=== PATIENT | female | born 1935 | race Caucasian/White ===

== ENCOUNTER 2019-11-07 13:04 | Emergency (ER) | payer MEDICARE ==
[~2019-11-07] VITALS: Ht 162.6 cm; Wt 61.7 kg
[~2019-11-07 13:04] MED LIST: NO HOME MEDS; TRAMADOL HCL50 MG PO; Z.0.CYMBALTA60 MG PO; Z.0.LORAZEPAM1 MG PO; Z.0.SIMVASTATIN40 MG PO; Z.0.TEMAZEPAM15 MG PO
--- OUTSIDE RECORDS SUMMARY | 2019-11-07 13:08 | XMS REPORT ---
Author Author [facility] Address Unknown Phone Unavailable Care Team Providers Care Pin Pusher Name Role Phone Unavailable Unavailable Payers Payer Name Policy Type Policy Number Effective Date Expiration Date Problems This patient has no known problems. Allergies, Adverse Reactions, Alerts Allergy Name Allergy Type Status Severity Reaction(s) Onset Date Inactive Date Treating Clinician Comments Penicillins DA Active U 2019-10-06 00:00:00 Sulfa (Sulfonamide Antibiotics) DA Active U 2019-10-06 00:00:00 adhesive tape DA Active U 2019-10-06 00:00:00 Penicillins DA Active U 2012-10-02 00:00:00 Sulfa (Sulfonamide Antibiotics) DA Active U 2012-10-02 00:00:00 adhesive tape DA Active U 2012-10-02 00:00:00 Medications This patient has no known medications. Results Test Description Test Time Test Comments Text Results Atomic Results Result Comments - CT C-SPINE W/O CONTRAST 2019-10-06 14:10:00 Name: [facility] : 1935 Age/S: 84 / F [address] [facility] Unit #: [id number] Loc: [place] [address] Phys: Dwayne Harry MD Acct: [id number] Dis Date: Status: REG ER PHONE #: [phone] Exam Date: 10/06/2019 1326 FAX #: [phone] Reason: trauma, plavix EXAMS: CPT CODE: [id number] CT C-SPINE W/O CONTRAST 52975 HISTORY: Pain after trauma and on Plavix. COMPARISON: CT scan from October 02, 2012. Location: [facility]. CT cervical spine without contrast: Automated exposure control. No acute fracture of the cervical spine. No prevertebral soft tissue swelling is noted. Multilevel moderate to severe canal and foraminal stenosis due to posterior marginal disc osteophyte complex. Facet hypertrophy contributes to the foraminal stenosis. Correlate with rad icular symptoms. Thyroid glands are unremarkable. Superior mediastinum is unremarkable. Lung apices are clear. Anatomic alignment. Vertebral body heights are maintained. Disc spaces are preserved. IMPRESSION: No acute fracture. Anatomic alignment. DJD. at 1410 Reported and signed by: Oseas Merrill M.D. CC: Dwayne Harry MD Technologist:Aki Chung RT(R) CTDI: DLP: Trnscb Date/Time: 10/06/2019 (1409) [email or web address] Orig Print D/T: S: 10/06/2019 (2775) PAGE 1 Signed Report - CT HEAD/BRAIN W/O CONT 2019-10-06 13:49:00 Name: LUCIL[facility] : 1935 Age/S: 84 / F [address] [facility] Unit #: [id number] Loc: [place] [address] Phys: Dwayne Harry MD Acct: [id number] Dis Date: Status: REG ER PHONE #: [phone] Exam Date: 10/06/2019 1326 FAX #: [phone] Reason: trauma, plavix EXAMS: CPT CODE: [id number] CT HEAD/BRAIN W/O CONT 40249 HISTORY: Fall and pain. COMPARISON: October 02, 2012. CT brain without contrast: Automated exposure control Location: [facility]. No acute intracranial bleeds or extra-axial collections are noted. No acute territorial vascular infarction is noted. The sulci, gyri, ventricles and subarachnoid spaces and the basilar cisterns are normal for patient's age. No herniation or hydrocephalus or midline shift is noted. Mild periventricular ischemic gliosis is noted. Age-appropriate atrophy is noted as well. Portions of the visualized paranasal sinuses are normal. No obvious bony calvarial defect is noted. IMPRESSION: No acute intracranial bleeds or extra-axial collections. No acute territorial vascular infarction. No herniation or hydrocephalus or midline shift. 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 at 1347 Reported and signed by: Oseas Merrill M.D. CC: Dwayne Harry MD Technologist:Aki THORPE(R) CTDI: DLP: Trnscb Date/Time: 10/06/2019 (6987) [email or web address] Orig Print D/T: S: 10/06/2019 (1725) PAGE 1 Signed Report
--- NOTE | 2019-11-07 14:18 | Diagnostic Imaging Report ---
Examination: CT head without contrast Clinical Indication: Fall with head injury. Technique: Transaxial noncontrast images from the skull base through the vertex were obtained. Sagittal and coronal reformatted images were done. Dose modulation, iterative reconstruction, and/or weight based adjustment of the mA/kV was utilized to reduce the radiation dose to as low as reasonably achievable. Comparison: Head CT performed June 12, 2013. Findings: Scalp: No abnormalities. Bones: Intact. No fractures. No blastic or lytic lesions. Brain sulci: Appropriate for patient's age. 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 Extra-axial space: No abnormalities. Parenchyma: Again demonstrated are confluent areas of low-attenuation within subcortical and periventricular white matter, nonspecific, but could represent microvascular ischemic disease. Chronic lacunar infarcts are again identified in the bilateral putamina and anterior limb of the right internal capsule. No masses, hemorrhage, or acute or chronic cortical based vascular insults. Suprasellar region: No abnormalities. Craniocervical junction: The foramen magnum is patent. No Chiari one malformation. Incidental findings: Opacified partially visualized right maxillary sinus, new from prior examination. Impression: 1. No new acute intracranial finding when compared to prior head CT performed June 12, 2013. 2. Unchanged moderate chronic microvascular ischemic change. 3. 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 Signed by: Dr. Miya Davis M.D. on 11/07/2019 2:16 PM
--- NOTE | 2019-11-07 14:43 | Diagnostic Imaging Report ---
EXAMINATION: CHEST 2 VIEWS INDICATION: ^left hip painb ^[id number] ^1350 COMPARISON: None FINDINGS: PA and lateral views TUBES and LINES: None. LUNGS: Lungs are well inflated. Lungs are clear. There is no evidence of pneumonia or pulmonary edema. PLEURA: No pleural effusion or pneumothorax. HEART AND MEDIASTINUM: The cardiomediastinal silhouette is unremarkable. The aorta is tortuous. BONES AND SOFT TISSUES: No acute osseous lesion. Partially visualized upper lumbar vertebroplasty change. Soft tissues are unremarkable. UPPER ABDOMEN: No free air under the diaphragm. IMPRESSION: No acute thoracic radiographic abnormality. Signed by: Maximus Brown MD on 11/07/2019 2:40 PM
--- NOTE | 2019-11-07 14:49 | Diagnostic Imaging Report ---
PELVIS AP 1-2 VIEWS - 3 views HISTORY: Pain. COMPARISON: None available. FINDINGS: Bones: No acute displaced fracture. Old bilateral femoral neck fracture deformities status post charlotte fixation. Osseous alignment is within normal limits. Joints: Advanced bilateral hip arthrosis. Soft tissues: Multiple soft tissue injection granulomas. IMPRESSION: No acute osseous abnormality. Advanced bilateral hip arthrosis. Bilateral femoral posttraumatic and surgical change. Signed by: Maximus Brown MD on 11/07/2019 2:47 PM
--- NOTE | 2019-11-07 15:23 | NUR ---
called [facility] [place] for transportation.
--- NOTE | 2019-11-07 17:11 | NUR ---
called [facility]. They contacted [facility] care transport, will contact for ETA. They state that they van cdl driver will be in between 1740 to 181.
== END 2019-11-07 18:32 | disposition home or self-care (01) ==
LOC: ER 13:04
DX: S00.83XA Contusion of other part of head, initial encounter (principal); W01.0XXA Fall on same level from slipping, tripping and stumbling without subsequent striking against object, initial encounter; Y92.008 Other place in unspecified non-institutional (private) residence as the place of occurrence of the external cause
CPT/HCPCS: 70450; 71046; 72170; 99283